=== PATIENT | male | born 1940 | race Caucasian/White ===

== ENCOUNTER → 2024-05-11 | Day surgery (SDC) | payer MEDICARE ==
[2024-05-09 12:58] LABS: BASOPHILS % 0.4 % (0.0-1.0); EOSINOPHILS # (AUTO) 0.3 (0.0-0.4); EOSINOPHILS % 4.2 % (0.0-6.0); HEMATOCRIT 44.9 % (38.2-49.6); HEMOGLOBIN 14.2 g/dL (14.0-18.0); LYMPHOCYTES # (AUTO) 1.5 (1.0-3.2); MEAN CORPUSCULAR HEMOGLOBIN 33.7 pg (28-32); MEAN CORPUSCULAR HGB CONC 31.6 g/dL (31-35); MEAN CORPUSCULAR VOLUME 106.7 fL (81-99); MONOCYTES # (AUTO) 0.5 (0.2-0.8); MONOCYTES % 5.7 % (4.4-11.3); NEUTROPHILS # (AUTO) 5.7 (2.1-6.9); NEUTROPHILS % 71.3 % (38.7-80.0); PLATELET COUNT 195 x10e3/uL (140-360); RED BLOOD COUNT 4.21 x10e6/uL (4.3-5.7); RED CELL DISTRIBUTION WIDTH 13.4 % (11.7-14.4); WHITE BLOOD COUNT 8.04 x10e3/uL (4.8-10.8)
[~2024-05-11] MED LIST: ACETAMINOPHEN 1000 MG/100 ML 100 ML IV ONE; ALENDRONATE SOD70 MG PO; ATORVASTATIN CA20 MG PO; BIOTIN 800 MCG1 EACH PO; CALCIUM PO; CO Q-1010 MG PO; DEXAMETHASONE SOD PHOS INJ 4 MG/ML SDV ONE; EPHEDRINE SULFATE INJ 50 MG/ML VIAL ONE; FENTANYL CITRATE/PF 100MCG/2 ML INJ ONE; FISH OIL 1,001000 M1 PO; FOLATE PO; LEVOTHYROXINE75 MCG PO; LIDOCAINE HCL 2% LOCAL INJ 5 ML SDV VIAL INJ ONE; ONDANSETRON HCL INJ 2MG/ML 2ML 2 MG/ML VIAL ONE; PROPOFOL IV EMULSION 10 MG/ML 20 ML VIAL ONE; VITAMIN C1000 MG PO; VITAMIN D325 MCG PO
[2024-05-11] MEDS: LACTATED RINGER'S 1,000 ML ONE (10:03)
[2024-05-11] MEDS: CEFAZOLIN SODIUM 2 GM ONE (10:12)
[2024-05-11 13:00] VITALS: BP 132/62; PULSE 62; RESP 16; O2SAT 97
== END | disposition home or self-care (01) ==
LOC: OR 09:42
PROVIDERS: ATTEND Orthopaedic Surgery
DX: T84.84XA Pain due to internal orthopedic prosthetic devices, implants and grafts, initial encounter (principal); T84.117A Breakdown (mechanical) of internal fixation device of bone of left lower leg, initial encounter; M25.562 Pain in left knee; Y83.8 Other surgical procedures as the cause of abnormal reaction of the patient, or of later complication, without mention of misadventure at the time of the procedure; M17.12 Unilateral primary osteoarthritis, left knee; M81.0 Age-related osteoporosis without current pathological fracture; E78.00 Pure hypercholesterolemia, unspecified; E03.9 Hypothyroidism, unspecified; Z87.81 Personal history of (healed) traumatic fracture; Z01.810 Encounter for preprocedural cardiovascular examination; Z01.812 Encounter for preprocedural laboratory examination; Z01.818 Encounter for other preprocedural examination; Z79.899 Other long term (current) drug therapy; Z79.52 Long term (current) use of systemic steroids
CPT/HCPCS: 20670; 36415; 71046; 85025; 93005; J0131; J1100; J2003; J2405; J2704; J3010; J7121; 76000